=== PATIENT | male | born 1980 | race African-American/Black ===

== ENCOUNTER 2022-12-29 22:41 | Emergency (ER) | payer SELFPAY ==
[~2022-12-29] VITALS: Ht 180.3 cm; Wt 82.0 kg
[2022-12-29 22:46] VITALS: BP 136/88; PULSE 84; RESP 16; TEMP 98.8; O2SAT 98
[2022-12-29] MEDS ORDERED: SODIUM CHLORIDE 0.9% 1000ML BAG (SEPSIS BOLUS) IV ONE (23:00)
[2022-12-29 23:33] LABS: BASOPHILS % 0.7 % (0.0-2.0); EOSINOPHILS % 1.5 % (0.0-5.0); HEMATOCRIT. 38.2 % (42.0-52.0); HEMOGLOBIN. 12.5 g/dL (14.0-18.0); LYMPHOCYTES % 33.9 % (20.0-50.0); MEAN CORPUSCULAR HEMOGLOBIN 27.1 pg (28.0-32.0); MEAN CORPUSCULAR HGB CONC 32.6 g/dL (31.0-37.0); MEAN CORPUSCULAR VOLUME 83.1 fL (80.0-94.0); MEAN PLATELET VOLUME 9.2 fl (7.4-10.4); MONOCYTES % 6.7 % (2.0-8.0); NEUTROPHILS % 57.2 % (40.0-76.0); PLATELET 271 x1000/uL (130-400); RED BLOOD CELL COUNT 4.59 mill/uL (4.7-6.1); RED CELL DISTRIBUTION WIDTH 14.8 % (11.6-14.6); WHITE BLOOD COUNT 6.6 x1000/uL (4.5-11.0)
[2022-12-29 23:35] LABS: CHLORIDE 107 mEq/L (98-107); INDEX HEMOLYSI 1 (1-3); INDEX ICTERIC 1 (1-4); INDEX LIPEMIC 1 (1-3); POTASSIUM 3.8 mEq/L (3.5-5.1); SODIUM 137 mEq/L (136-145)
[2022-12-29 23:38] LABS: INR 1.1; PROTHROMBIN TIME 11.4 sec (9.6-11.0)
[2022-12-29 23:44] LABS: ALANINE AMINOTRANSFERASE 19 IU/L (13-61); ALBUMIN 3.3 g/dL (3.4-5.0); ASPARTATE AMINOTRANSFERASE 20 IU/L (15-37); BILIRUBIN TOTAL 0.3 mg/dL (0.1-1.0); CALCIUM 8.5 mg/dL (8.5-10.1); CARBON DIOXIDE 25 mEq/L (21-32); CREATINE KINASE 303 IU/L (39-308); CREATININE 0.9 mg/dL (0.6-1.3); ETHANOL BLOOD < 10 mg/dL (-10); GLUCOSE 101 mg/dL (70-105); PROTEIN TOTAL 7.1 g/dL (6.0-8.3); UREA NITROGEN BLOOD 11 mg/dL (7-21)
[2022-12-30] MEDS ORDERED: BACITRACIN ZINC OINT UDPKT TOP ONE (00:45)
[2022-12-30] MEDS ORDERED: HYDROCODONE/ACETAMINOPHEN 5/325MG TABLET PO ONE (00:45)
[2022-12-30] MEDS ORDERED: SULF1TAB48 MT (00:53)
[2022-12-30] MEDS ORDERED: ACET-2708 MT (00:53)
[2022-12-30] MEDS ORDERED: SULFAMETHOXAZOLE/TRIMETHOPRIM 800/160MG TABLET PO NR (01:00)
[2022-12-30] MEDS ORDERED: ACETAMINOPHEN 325MG TABLET PO NR (01:00)
[2022-12-30] MEDS ORDERED: MUPI1OIN4 TP (07:46)
[2022-12-30] MEDS ORDERED: CLIN-194 MT (07:46)
== END 2022-12-30 03:53 | disposition home or self-care (01) ==
LOC: ER 22:41
DX: S91.332A Puncture wound without foreign body, left foot, initial encounter (principal); E11.9 Type 2 diabetes mellitus without complications; F17.200 Nicotine dependence, unspecified, uncomplicated; X58.XXXA Exposure to other specified factors, initial encounter; Y93.89 Activity, other specified; Y92.89 Other specified places as the place of occurrence of the external cause; Y99.8 Other external cause status
CPT/HCPCS: 80053; 80320; 82550; 83605; 83690; 85025; 85610; 87040; 36415; 84145; 99283; J7030; G0480

== ENCOUNTER 2022-12-30 07:09 | Emergency (ER) | payer SELFPAY ==
[~2022-12-30] VITALS: Ht 180.3 cm; Wt 82.0 kg
[~2022-12-30 07:09] MED LIST: ACET-2708 MT; SULF1TAB48 MT
[2022-12-30 07:21] VITALS: BP 119/62; PULSE 68; RESP 16; TEMP 98.3; O2SAT 98
[2022-12-30] MEDS ORDERED: TETANUS, DIPHTHERIA, PERTUSSIS VAC/PF 0.5ML (>10YR OLD) IM ONE (07:45)
[2022-12-30] MEDS ORDERED: CLINDAMYCIN HCL 150MG CAPSULE PO ONE (07:45)
[2022-12-30] MEDS ORDERED: BACITRACIN ZINC OINT UDPKT TOP ONE (07:45)
[2022-12-30] MEDS ORDERED: MUPI1OIN4 TP (07:46)
[2022-12-30] MEDS ORDERED: CLIN-194 MT (07:46)
== END 2022-12-30 09:04 | disposition home or self-care (01) ==
LOC: ER 08:05
DX: S91.012A Laceration without foreign body, left ankle, initial encounter (principal); E11.9 Type 2 diabetes mellitus without complications; X58.XXXA Exposure to other specified factors, initial encounter; Y93.89 Activity, other specified; Y92.89 Other specified places as the place of occurrence of the external cause; Y99.8 Other external cause status
CPT/HCPCS: 90715; 99283

== ENCOUNTER 2022-12-31 17:25 | Emergency (ER) | payer MEDICAID ==
[~2022-12-31] VITALS: Ht 180.3 cm; Wt 80.0 kg
[~2022-12-31 17:25] MED LIST changes: +CLIN-194 MT; +MUPI1OIN4 TP
[2022-12-31 17:50] VITALS: BP 123/72; PULSE 86; RESP 16; TEMP 98.2; O2SAT 98
== END 2022-12-31 19:24 | disposition home or self-care (01) ==
LOC: ER 17:25
DX: T73.0XXA Starvation, initial encounter (principal); E11.9 Type 2 diabetes mellitus without complications; F10.90 Alcohol use, unspecified, uncomplicated; Z88.8 Allergy status to other drugs, medicaments and biological substances; Y90.8 Blood alcohol level of 240 mg/100 ml or more
CPT/HCPCS: 99281

== ENCOUNTER → 2023-01-04 | Emergency (ER) | payer MEDICAID ==
[~2023-01-04] MED LIST changes: +COLC0.6C3 PO; +INDO50CA98 PO
== END ==
LOC: ER2 04:29
DX: Z53.21 Procedure and treatment not carried out due to patient leaving prior to being seen by health care provider (principal)
CPT/HCPCS: 99281

== ENCOUNTER 2023-01-06 10:44 | Emergency (ER) | payer MEDICAID ==
[~2023-01-06] VITALS: Ht 175.3 cm; Wt 75.0 kg
[~2023-01-06 10:44] MED LIST changes: -COLC0.6C3 PO; -INDO50CA98 PO
[2023-01-06 10:48] VITALS: O2SAT 99
[2023-01-06] MEDS ORDERED: COLC0.6C3 PO (10:51)
[2023-01-06] MEDS ORDERED: INDO50CA98 PO (10:51)
[2023-01-06] MEDS ORDERED: IBUPROFEN 800MG TABLET PO ONE (11:00)
[2023-01-06] MEDS ORDERED: COLCHICINE 0.6MG TABLET PO ONE (11:00)
[2023-01-06 11:12] VITALS: BP 158/84
[2023-01-06 11:14] VITALS: PULSE 80; RESP 18; TEMP 98.5
[2023-01-06] MEDS ORDERED: IBUPROFEN 400MG TABLET PO NR (15:15)
== END 2023-01-06 11:17 | disposition home or self-care (01) ==
LOC: ER 11:00
DX: M10.9 Gout, unspecified (principal); E11.9 Type 2 diabetes mellitus without complications; Z88.9 Allergy status to unspecified drugs, medicaments and biological substances
CPT/HCPCS: 99283

== ENCOUNTER 2023-01-06 16:34 | Emergency (ER) | payer MEDICAID ==
[~2023-01-06] VITALS: Ht 177.8 cm; Wt 77.0 kg
[~2023-01-06 16:34] MED LIST changes: +COLC0.6C3 PO; +INDO50CA98 PO
[2023-01-06 16:41] VITALS: BP 132/76; PULSE 95; RESP 18; TEMP 97.9; O2SAT 97
[2023-01-06] MEDS ORDERED: TETANUS, DIPHTHERIA, PERTUSSIS VAC/PF 0.5ML (>10YR OLD) IM ONE (17:15)
[2023-01-06] MEDS ORDERED: SULFAMETHOXAZOLE/TRIMETHOPRIM 800/160MG TABLET PO ONE (17:15)
[2023-01-06] MEDS ORDERED: CEFTRIAXONE SODIUM 1 G/VIAL IM ONE (17:15)
== END 2023-01-06 18:02 | disposition left against medical advice (07) ==
LOC: ER 16:34
DX: S91.312D Laceration without foreign body, left foot, subsequent encounter (principal); I10 Essential (primary) hypertension; Z88.8 Allergy status to other drugs, medicaments and biological substances; W25.XXXD Contact with sharp glass, subsequent encounter
CPT/HCPCS: 99283

== ENCOUNTER 2024-08-02 19:14 | Emergency (ER) | payer MEDICAID, OTHER ==
[~2024-08-02] VITALS: Ht 180.3 cm; Wt 103.0 kg
[2024-08-02 19:36] VITALS: BP 135/84; PULSE 83; RESP 16; TEMP 36.8; O2SAT 99
[2024-08-02 20:42] LABS: CLARITY URINE CLEAR (CLEAR); COLOR URINE YELLOW (YELLOW); GLUCOSE URINE NEGATIVE (NEGATIVE); KETONES URINE NEGATIVE (NEGATIVE); LEUKOCYTE ESTERASE URINE NEGATIVE (NEGATIVE); NITRITE URINE NEGATIVE (NEGATIVE); OCCULT BLOOD URINE NEGATIVE (NEGATIVE); PROTEIN URINE NEGATIVE (NEGATIVE); SPECIFIC GRAVITY URINE 1.012 (1.005-1.030)
[2024-08-02 21:09] LABS: CARBON DIOXIDE 26 mEq/L (21-32); CHLORIDE 107 mEq/L (98-107); POTASSIUM 3.8 mEq/L (3.5-5.1); SODIUM 141 mEq/L (136-145)
[2024-08-02 21:10] LABS: CALCIUM 9.1 mg/dL (8.7-10.4)
[2024-08-02 21:15] LABS: CREATININE 1.1 mg/dL (0.6-1.3); GLUCOSE 81 mg/dL (70-105); UREA NITROGEN BLOOD 9 mg/dL (9-23)
== END 2024-08-02 21:26 | disposition home or self-care (01) ==
LOC: ER 19:14
DX: R35.0 Frequency of micturition (principal); F10.90 Alcohol use, unspecified, uncomplicated; Z79.899 Other long term (current) drug therapy; Y90.9 Presence of alcohol in blood, level not specified
CPT/HCPCS: 36415; 80048; 81003; 99283

== ENCOUNTER 2024-08-26 04:04 | Emergency (ER) | payer MEDICAID ==
[~2024-08-26] VITALS: Ht 180.3 cm; Wt 98.1 kg
[2024-08-26 04:10] VITALS: O2SAT 98
[2024-08-26 06:02] LABS: CLARITY URINE CLEAR (CLEAR); COLOR URINE YELLOW (YELLOW); GLUCOSE URINE NEGATIVE (NEGATIVE); KETONES URINE TRACE (NEGATIVE); LEUKOCYTE ESTERASE URINE NEGATIVE (NEGATIVE); NITRITE URINE NEGATIVE (NEGATIVE); OCCULT BLOOD URINE NEGATIVE (NEGATIVE); PROTEIN URINE NEGATIVE (NEGATIVE); SPECIFIC GRAVITY URINE 1.009 (1.005-1.030); UROBILINOGEN URINE 0.2 E.U./dL (0.2-1.0)
[2024-08-26 07:24] VITALS: BP 135/87; PULSE 78; RESP 18; TEMP 36.7; O2SAT 98
== END 2024-08-26 07:25 | disposition home or self-care (01) ==
LOC: ER 04:04
DX: R35.0 Frequency of micturition (principal); F10.90 Alcohol use, unspecified, uncomplicated; Z79.899 Other long term (current) drug therapy; Y90.9 Presence of alcohol in blood, level not specified
CPT/HCPCS: 81003; 99282; 99283